=== PATIENT | female | born 1955 | race Caucasian/White ===

== ENCOUNTER 2024-02-09 16:16 | Outpatient (AMB) | payer OTHER, SELFPAY ==
--- NOTE | 2024-02-09 12:42 | A.OFFVIS_ITS ---
Vital Signs 02/09/24 16:18 Height 5 ft 2 in Weight 220 lb 7.396 oz BMI 40.3 BP 118/66 Blood Pressure Location Rt brachial Position Sitting Pulse 70 Pulse Source Pulse Oximeter Intake Visit Reasons: T2DM/hyperlipidemia/CONF Intake Note: Patient presents today to re-establish treatment for Type 2 Diabetes Mellitus & Hyperlipidimia: Last Diabetic eye exam was on: OVER DUE Last Podiatry exam was on: Does not see a Program Developer Most recent HbA1c: 8.4%, 02/09/2024 Random Glucose- 57 mg/dL, Today, 16:29 PM, 87 mg/dL, 16:52 PM Financial Planning Adviser Required: No Accompanied by: Self / Same As Patient Allergies doxycycline Allergy (Mild, Uncoded 02/09/24 16:39) Unknown HPI Comments Details: 68 YO female who is seen in consultation for T2DM at the request of PCP. Initially diagnosed with T2DM in []. Was initially started on treatment with []. Current regimen []. Checks sugars [] times per day. Average sugar: [] Range: [] Per the CGM Helio / Dexcom CGMS is active % of time . data the patient's predicted A1C is []% which is compared to the patients previous A1C [] dated []. Avg glucose is . Variability of The patient's blood sugars were in target []% of the time, above target []% of the time, and below target []% of th e time Reports low sugars []. Treats lows with []. [Checks] sugar after to ensure it is rising. [Treats] according to rule of 15's. Most recent A1C [], [down] from prior [] on []. Family history of T2DM in []. Has eyes checked yearly, last eye exam [], [denies] retinopathy. [Denies ] neuropathy, last foot exam [], sees podiatry. [Denies] nephropathy, on [DILIA/ARB]. UAC [] as measured on []. [Has] HLD, on [statin]. Last LDL [] as measured on []. [Denies] CAD. Diet: [] Weight: [] [Had] diabetes education. [facility] Medical History (Updated 02/09/24 @ 16:43 by Soha Godinez NP) Type 2 diabetes mellitus Physical Exam Vital Signs: Last Vital Signs Pulse 70 02/09/24 16:18 BP 118/66 02/09/24 16:18 BMI result Body Mass Index 40.3 Absence of Cushingoid features. Absence of acromegalic features. Neck exam reveals nl size thyroid about 15 gms. No thyroid nodules palpable. No carotid bruits present. Lungs CTA. Heart S1 S2, Reg R/R. No M/R/ G. Skin exam reveals absence of vitiligo or acanthosis nigricans. Abdominal exam reveals Soft NT/ND with NA BS. No organomegaly present. Neck Other: . Extrem Other: Visual exam of foot performed. No ulcerations or open lesions. No onchomycosis, no callouses.Pulses 2 + distally Sensation intact to monofilament exam. Vibratory sensation sensed is intact with 128 Hz tuning fork Results AMB Hemoglobin A1c AMB Hemoglobin A1c 8.4 % Last Edit by FARHAD Spain on 02/09/24 16:54 Results Reviewed Results Reviewed: Laboratory Last Values Glucose (Clinic) 87 mg/dL (60-115) 02/09/24 16:52 Hgb A1c (Clinic) 8.4 % (4.0-6.0) H 02/09/24 16:54 Assessment & Plan Assessment & Plan Orders: Orders Microalbumin, Random (w Creat) 02/09/24 E11.9 - Type 2 diabetes mellitus without complications Creatinine Urine 02/09/24 E11.9 - Type 2 diabetes mellitus without complications AMB Hemoglobin A1c 02/09/24 E11.9 - Type 2 diabetes mellitus without complications Coding
[2024-02-09 16:18] VITALS: BP 118/66; PULSE 70; BMI 40.3
--- NOTE | 2024-02-09 16:21 | A.OFFVIS_ITS ---
Vital Signs 02/09/24 16:18 Height 5 ft 2 in Weight 220 lb 7.396 oz BMI 40.3 BP 118/66 Blood Pressure Location Rt brachial Position Sitting Pulse 70 Pulse Source Pulse Oximeter Intake Visit Reasons: T2DM/hyperlipidemia/CONF Intake Note: Patient presents today to re-establish treatment for Type 2 Diabetes Mellitus & Hyperlipidimia: Last Diabetic eye exam was on: OVER DUE Last Podiatry exam was on: Does not see a Keyseater Operator Most recent HbA1c: DUE Random Glucose- 57 mg/dL, Today Furniture Decals Inspector Required: No Accompanied by: Self / Same As Patient Allergies doxycycline Allergy (Mild, Uncoded 02/09/24 16:24) Unknown HPI Comments Details: 68 YO female who is seen in consultation for T2DM at the request of PCP. Initially diagnosed with T2DM in 2008, pre diabetes ten years prior to that time. Was initially started on treatment with metformin 500mg titrated 1000mg twice daily stopped due to a recall, was put back on the regular and couldn't tolerate regular strength. She is on a Purkinje helio 2. She ran out of sensors due to falling out early. She has a reader. Readings fastings have been 140-165, recently Lantus was increased to 40 units now am readings are 115-130 Current regimen Lantus 40 units Humalog sliding scale 12-16 am, 16-22 units glipizide: was advised to take 1/2 to 1 tablet in the evening with a snack, hasn't needed . Checks sugars [] times per day. Average sugar: [] Range: [] Per the CGM Helio / Dexcom CGMS is active % of time . data the patient's predicted A1C is []% which is compared to the patients previous A1C [] dated []. Avg glucose is . Variability of The patient's blood sugars were in target []% of the time, above target []% of the time, and below target []% of the time Reports low sugars []. Treats lows with []. [Checks] sugar after to ensure it is rising. [Treats] according to rule of 15's. Most recent A1C [], [down] from prior [] on []. Family history of T2DM in []. Has eyes checked yearly, last eye exam [], [denies] retinopathy. [Denies ] neuropathy, last foot exam [], sees podiatry. [Denies] nephropathy, on [DILIA/ARB]. UAC [] as measured on []. [Has] HLD, on [statin]. Last LDL [] as measured on []. [Denies] CAD. Diet: [] Weight: [] [Had] diabetes education. Physical Exam Vital Signs: Last Vital Signs Pulse 70 02/09/24 16:18 BP 118/66 02/09/24 16:18 BMI result Body Mass Index 40.3 Absence of Cushingoid features. Absence of acromegalic features. Neck exam reveals nl size thyroid about 15 gms. No thyroid nodules palpable. No carotid bruits present. Lungs CTA. Heart S1 S2, Reg R/R. No M/R/ G. Skin exam reveals absence of vitiligo or acanthosis nigricans. Abdominal exam reveals Soft NT/ND with NA BS. No organomegaly present. Neck Other: . Extrem Other: Visual exam of foot performed. No ulcerations or open lesions. No onchomycosis, no callouses.Pulses 2 + distally Sensation intact to monofilament exam. Vibrat ory sensation sensed is intact with 128 Hz tuning fork Results Reviewed Results Reviewed: Laboratory Last Values Glucose (Clinic) 57 mg/dL (60-115) L* 02/09/24 16:29 Coding
[2024-02-09 16:36] LABS: Glucose, Whole Blood 57 mg/dL (60-115)
[2024-02-09 16:56] LABS: Glucose, Whole Blood 87 mg/dL (60-115)
== END 2024-02-09 17:02 | disposition home or self-care (01) ==
PROVIDERS: PCP Family Medicine; Visit Provider Nurse Practitioner Adult Health
DX: E11.9 Type 2 diabetes mellitus without complications (principal)

== ENCOUNTER → 2024-02-09 16:16 | Outpatient (BNVA) | payer OTHER, SELFPAY | PROVIDERS: PCP Family Medicine; Visit Provider Nurse Practitioner Adult Health | DX: E11.9 Type 2 diabetes mellitus without complications (principal); Z79.4 Long term (current) use of insulin | CPT/HCPCS: 82947; 83036 ==

== ENCOUNTER 2024-05-31 15:26 | Outpatient (AMB) | payer OTHER, SELFPAY ==
--- NOTE | 2024-05-31 13:34 | A.OFFVIS_ITS ---
Vital Signs 05/31/24 15:35 Height 5 ft 2 in BMI Reason not done Patient refused/unable BP 118/76 Blood Pressure Location Rt brachial Position Sitting Pulse 74 Pulse Source Pulse Oximeter Pulse Oximetry (%) 96 Oxygen Delivery Method Room Air Intake Visit Reasons: T2DM/hyperlipidemia Intake Note: Patient presents today for a follow-up on Type 2 Diabetes Mellitus & Hyperlipidemia: Last Diabetic eye exam was on: OVER DUE Last Podiatry exam was on: Does not see a Wire Weaver Helper Most recent HbA1c: 7.6%, 05/31/2024 Random Glucose- 92 mg/dL, Today Allergies doxycycline Allergy (Mild, Uncoded 02/09/24 16:39) Unknown HPI Comments Details: 68 YO female who is seen in f/u for T2DM. She was seen for initial consultation 02/09/24 at which time a glucose sensor was recommended in no changes to medications were made due to improving glucose numbers. Hemoglobin A1c 05/31/2024 7.6 %, 02/10/2024 8.4 % down from 10.8% Was initially started on treatment with metformin diarrhea, stomach ache, nausea rebelysus same: GI issues Current regimen: Lantus 36 units at hs Humalog 10-14 units with breakfast 12-16 units with supper gLipizide 10mg daily 1to 1 1/2 am pm 1- 2 with supper takes this 3 times per week when she takes it, it does bring her sugars down. Causes occasional lows She has not been following a balanced diet and has had quite a few readings high 200's/ She is motivated Treats lows with juice or jelly beans. 15 carb g and repeat in 15 minutes follows up with protein. Doesn't seem to correlate with when she has taken glipzide. Most recent A1C 8.4%02/09/24 next down from prior 10.8 on 10/13/2023. Denies retinopathyHas eyes checked yearly. Last eye exam over a year Has neuropathy: on gabapentin takes for restless legs some numbness improved by gabapentin takes at hs and takes only in the am if symptomatic [Denies] nephropathy, on [DILIA/ARB]. labs not available [Has] HLD, on statin Last LDL not available [facility] Medical History (Updated 03/31/24 @ 16:46 by Soha Godinez NP) Neuropathy Hypothyroidism Hyperlipidemia Type 2 diabetes mellitus Physical Exam Vital Signs: Last Vital Signs Pulse 74 05/31/24 15:35 BP 118/76 05/31/24 15:35 Pulse Ox 96 05/31/24 15:35 Oxygen Delivery Method Room Air 05/31/24 15:35 Const Other: Absence of Cushingoid features. Absence of acromegalic features. Neck exam reveals nl size thyroid about 15 gms. No thyroid nodules palpable. No carotid bruits present. Lungs CTA. Heart S1 S2, Reg R/R. No M/R G. Skin exam reveals absence of vitiligo or acanthosis nigricans. No edema . No ulcerations or open lesions. No inter digit maceration or fissuring. No onychomycosis, no callouses. Sensation diminished to monofilament exam. Vibratory sensation is normal with 128 Hz tuning fork. Results AMB Hemoglobin A1c AMB Hemoglobin A1c 7.6 % Last Edit by FARHAD Spain on 05/31/24 15:51 Results Reviewed Results Reviewed: Laboratory Last Values Glucose (Clinic) 92 mg/dL (60-115) 05/31/24 15:40 Hgb A1c (Clinic) 7.6 % (4.0-6.0) H 05/31/24 15:50 Assessment & Plan Assessment & Plan (1) Type 2 diabetes mellitus: Code(s): E11.9 - Type 2 diabetes mellitus without complications Category: Medical Plan: 69-year-old type 2 diabetic with neuropathy on gabapentin with an A1c of 7.6%. Patient believes her A1c would be 7 but she has had a short run of noncompliance with diet which she will attempt to improve. I reviewed that are typically do not give glipizide when a patient is on insulin and that we could do a sliding scale. Because she only periodically has elevated readings, she preferred to stick with the glipizide and we will observe for any side effects. The patient was counseled that adding 2-10 minutes of exercise in the evening we will lower her sugars overnight. She is somewhat limited secondary to back pain. She declined Hawa aLra RD referral but is willing to see Mishel Garcia CDE. I will see her back in 3 months' time The patient had an opportunity to ask questions regarding treatment plan. The pa lyle expressed understanding and agreement with the above treatment plan. The patient is aware they should contact our office by phone for worsening glucose readings or for any low blood sugars which may warrant a change in diabetes medication. Compliance is encouraged with medications and any followup testing/consults which may have been ordered. Orders: Orders AMB Hemoglobin A1c Today E11.9 - Type 2 diabetes mellitus without complications Referrals Diabetes Education Referral E11.9 - Type 2 diabetes mellitus without complications Patient Instructions: Take 15 carb carbohydrate grams to treat a low sugar (3-4 glucose tablets, half a glass of juice or 15 carbohydrate grams of soft candy such as gummie snacks). Recheck your sugar in 15 minutes and re-treat again with 15 carbohydrate grams if low or still with symptoms. Do not drive a car or operate machinery if you do not know what your blood sugar is, if it is low or in excess of 300. Check your feet daily looking for any signs of infection, drainage, redness, ulceration and seek medical attention if this occurs. Break in shoes gradually and do not wear open-toed shoes or walk stocking footed or barefooted. The patient was counseled to achieve a target A1C of 7% (154 avg). Fasting blood sugars should be 90-130 in the morning and less than 180 two hours after meals. Reviewed the relationship between poor diabetic control and the development of complications. Coding Level of Care Code Est Pt Level 4 (96255) Complex EM visit Add On G2211 Diagnoses Type 2 diabetes mellitus E11.9 Time Spent (min) 30 Comment Time spent reviewing labs/provider notes, face to face, chart doc
[2024-05-31 15:35] VITALS: BP 118/76; PULSE 74; O2SAT 96
[2024-05-31 16:26] LABS: Glucose, Whole Blood 92 mg/dL (60-115)
--- OUTSIDE RECORDS SUMMARY | 2024-05-31 19:16 | XMS_ITS | Encounter Summary ---
Author Organization [employer] Address [address] [place] [address] [address] [place] [address] Care Team Providers Care Highway Maintenance Technician Name Role Phone Ilana Smith Primary Care Provider [phone] Reason for Visit * Reason Comments Med Refill Encounter Details Date Type Department Care Team ([facility] st Contact Info) Description 03/05/2023 Refill [facility] [address] [place], [place] [phone] Ilana Smith ANP [address] [place] [address] Social History Tobacco Use Types Packs/Day Years Used Date Smoking Tobacco: Never Smokeless Tobacco: Never Alcohol Use Standard Drinks/Week Comments Not Currently 0 (1 standard drink = 0.6 oz pur e alcohol) Depression Answer Date Recorded Patient Health Questionnaire-9 Score 5 01/06/2023 Patient Health Questionnaire-9 Score 5 01/06/2023 Last PHQ-9: Questionnaire Data Not on file 1 Housing Stability Answer Date Recorded What is your housing situation today? I do not have housing (Staying with others, in a hotel, in a alf, living outside on the street, on a beach, in a car, or in a park 01/06/[address] you li ve. Do you have problems with any of the following? None of the above 01/06/2023 Food Insecurity Answer Date Recorded Within the past 12 months, y ou worried that your food would run out before you got money to buy more: Never True 01/06/2023 Within the past 12 months,th e food you bought just didn't last and you didn't have enough money to get more: Never True Transportation Answer Date Recorded In the past 12 months, has l ack of transportation kept you from medical appts, meetings, work or from getting things needed for daily living? No 01/06/2023 Utilities Answer Date Recorded In the past 12 months, has t he electric, gas, oil or water company threatened to shut off services in your home? No 01/06/2023 Depression Answer Date Recorded Patient Health Questionnaire-2 Score 1 01/06/2023 Comments Unknown Sex and Gender Information Value Date Recorded Sex Assigned at Female 01/06/2022 10:34 AM EDT Legal Sex Female 10:34 AM EDT Gender Identity Female 01/06/2022 10:34 AM EDT Sexual Orientation Straight 01/06/2022 10 :34 AM EDT documented as of this encounter Plan of Treatment Upcoming Encounters Date Type Department Care Team (Late st Contact Info) Description 07/28/2024 2:00 PM EDT Office Visit [facility] [address] [place] [address] Ilana Smith ANP [address] [place] [address] documented as of this encounter Visit Diagnoses Not on filedocumented in this encounter Additional Health Concerns Assessment Noted Time PHQ-9 Depression Total Score: 5 01/07/20 23 3:08 PM EDT documented as of this encounter Care Teams Highway Maintenance Technician Relationship Specialty Start Date End Date Ilana Smith ANP [address] [place] [id number] PCP - General Family Medicine 10/24/21 documented as of this encounter
--- OUTSIDE RECORDS SUMMARY | 2024-05-31 19:16 | XMS_ITS | Encounter Summary ---
Author Organization [employer] Address [address] [facility] [address] [place] [address] Care Team Providers Care Day Trader Name Role Phone Ilana Smith SANTOS Primary Care Provider [phone] Encounter Details Date Type Department Care Team (Latest Contact Info) Description 05/26/2024 Travel Social History Tobacco Use Types Packs/Day Years Used Date Smoking Tobacco: Never Smokeless Tobacco: Never Alcohol Use Standard Drinks/Week Comments Not Currently 0 (1 standard drink = 0.6 oz pur e alcohol) Depression Answer Date Recorded Patient Health Questionnaire-9 Score 3 05/26/2024 Patient Health Questionnaire-9 Score 3 05/26/2024 Last PHQ-9: Questionnaire Data Not on file 0 05/26/2024 Housing Stability Answer Date Recorded What is your housing situation today? I have gallo youssef 05/18/[address] you li ve. Do you have problems with any of the following? None of the above 05/18/2024 Food Insecurity Answer Date Recorded Within the past 12 months, y ou worried that your food would run out before you got money to buy more: Never True 05/18/2024 Within the past 12 months,th e food you bought just didn't last and you didn't have enough money to get more: Never True 02/2025 Transportation Answer Date Recorded In the past 12 months, has l ack of transportation kept you from medical appts, meetings, work or from getting things needed for daily living? No 05/18/2024 Utilities Answer Date Recorded In the past 12 months, has t he electric, gas, oil or water company threatened to shut off services in your home? No 05/18/2024 Depression Answer Date Recorded Patient Health Questionnaire-2 Score 2 05/26/2024 Internet Access Answer Date Recorded Internet Access Q1 Yes 05/18/2024 Internet Access Q2 Not on file 05/18/2024 Comments Unknown Sex and Gender Information Value [...] Description 07/28/2024 2:00 PM EDT Office Visit [facility] MEDICINE [address] [place] [phone] Ilana Smith ANP [address] [place] [address] documented as of this encounter Visit Diagnoses Not on filedocumented in this encounter Additional Health Concerns Assessment Noted Time PHQ-9 Depression Total Score: 3 05/27/19 25 1:41 PM EDT documented as of this encounter Care Teams Day Trader Relationship Specialty Start Date End Date Ilana Smith ANP [address] [place] [id number] PCP - General Family Medicine 10/24/21 documented as of this encounter
--- OUTSIDE RECORDS SUMMARY | 2024-05-31 19:16 | XMS_ITS | Encounter Summary ---
Author Organization [employer] Address [address] [facility] 7t [place] [address] Care Team Providers Care Treating Plant Operator Name Role Phone Ilana Smith Primary Care Provider [phone] Encounter Details Date Type Department Care Team (Latest Contact Info) Description 05/26/2024 2:00 PM EDT Telemedicine [facility] MEDICINE [address] [place], [place] [phone] Ilana Smith ANP [address] [place], [place] [phone] Depression, unspecified depression type (Primary Dx); Morbid obesity (CMS/HCC); Type 2 diabetes mellitus with hyperlipidemia (CMS/HCC) ([facility]/HCC); Acquired hypothyroidism; Restless legs Social History Tobacco Use Types Packs/Day Years [...] your housing situation today? I have gallo mikael 05/18/[address] you li [...] AM EDT documented as of this encounter Progress Notes * SANTOS Alvarez - 05/26/2024 2:00 PM EDT Subjective Patient ID: Lisa Sanchez is a 69 y.o. female who presents for No chief complaint on file.. HPI PMH T2DM w/ HLD, chronic low back pain w/ R sided sciatica Is interested into wellbutrin for wt loss and antidepressant effect. For DM: she could not tolerate any GLP1 or GLP/GIP. Thus far have trialed trulicity, ozempic, rybelsus and tirzepatide. EMMANUELLE incl nausea, vomiting, diarrhea. She is using glipizide, basal and bolus insulin. She will look into RSV vaccine at her pharmacy. Lab Results Component Value Date HGBA1C 8.2 (A) 02/25/2024 Review of Systems Constitutional: Negative for chills and fever. HENT: Negative for sore throat. Respiratory: Negative for cough and shortness of breath. Cardiovascular: Negative for chest pain. Gastrointestinal: Negative for constipation and diarrhea. Endocrine: Negative for polydipsia, polyphagia and polyuria. Genitourinary: Negative for dysuria. Psychiatric/Behavioral: Negative for sleep disturbance. Objective Physical Exam Exam limited by telehealth format. Pt speaking clearly in complete sentences. Assessment/Plan Diagnoses and all orders for this visit: Depression, unspecified depression type Reviewed side effects of new medication, when to call clinic, when to stop med (such as w/ worsening of depression with mental health meds or occurrence of rash, allergic reaction). Having difficulty getting out of the house. - buPROPion XL (Wellbutrin XL) 150 MG 24 hr tablet; Take 1 tablet (150 mg) by mouth Once per day. Do not crush, chew, or split. Morbid obesity (CMS/HCC) Lifestyle recommendations: be as active as able, ideally exercise 150min moderate intensity or 75min vigorous intensity weekly; increase intake of vegetables, fruits, whole grains, fish. Try to minimize intake of sugary or greasy food and drink. Use olive oil or vegetable, peanut, canola, or similar oil for cooking. Type 2 diabetes mellitus with hyperlipidemia (CMS/HCC) (CMS/[facility]) A1c goal < 7.0 Thus far cannot tolerate any GLP1 Cont lantus and lispro (PRN) Using glipizide PRN elevated BG or based on meals planned Will get labs as ordered Planning to follow-up w/ endo for ongoing consideration for insulin pump Recommend she look at [email or web address] for support and info. On statin, no DILIA/ARB or ASA Eye exam she will call for visit - Comprehensive Metabolic Panel; Future - Lipid Panel, Standard; Future - atorvastatin (Lipitor) 80 MG tablet; Take 1 tablet (80 mg) by mouth at bedtime. - gabapentin (Neurontin) 400 MG capsule; TAKE 2 CAPSULES BY MOUTH AT BEDTIME NEEDED FOR RESTLESSLEGS AND 1 CAPSULE ONCE DAILY IN THE MORNING - glipiZIDE (Glucotrol) 10 MG tablet; TAKE 1 /2 - 2 TABLET BY MOUTH BEFORE BREAKFAST AND 1/2 -2 TABLETS BEFORE DINNER - Hemoglobin A1c; Future - Albumin, Random Urine W/Creatinine; Future Acquired hypothyroidism Cont levothyroxine 200mcg, check: - TSH W/Reflex to FT4; Future Restless legs - gabapentin (Neurontin) 400 MG capsule; TAKE 2 CAPSULES BY MOUTH AT BEDTIME NEEDED FOR RESTLESSLEGS AND 1 CAPSULE ONCE DAILY IN THE MORNING documented in this encounter Plan of Treatment Upcoming Encounters Date Type Department Care Team (Late st Contact Info) Description 07/28/2024 2:00 PM EDT Office Visit [facility] MEDICINE [address] [place] [address] Ilana Smith ANP [address] [place] [address] Scheduled Orders Name Type Priority Associated Diagnoses Orde r Schedule TSH W/Reflex to FT4 Lab Routine Acquired hypothyroidism Expected: 05/26/2024 (Approximate), Expires: 05/26/2025 Comprehensive Metabolic Panel Lab Routine Type 2 diabetes mellitus with hyperlipidemia (CMS/HCC) ([facility]/HCC) Expected: 05/26/2024 (Approximate), Expires: 05/26/2025 Lipid Panel, Standard Lab Routine Type 2 diabetes mellitus with hyperlipidemia (CMS/HCC) (CMS/HCC) Expected: 05/26/2024 (Approximate), Expires: 05/26/2025 Hemoglobin A1c Lab Routine Type 2 diabetes mellitus with hyperlipidemia (CMS/HCC) (CMS/HCC) Expected: 05/26/2024 (Approximate), Expires: 05/26/2025 Albumin, Random Urine W/Creatinine Lab Routine Type 2 diabetes mellitus with hyperlipidemia (CMS/HCC) (CMS/HCC) Expected: 05/26/2024 (Approximate), Expires: 05/26/2025 documented as of this encounter Visit Diagnoses Diagnosis Depression, unspecified depression type- Primary Morbid obesity (CMS/HCC) Morbid obesity Type 2 diabetes mellitus with hyperlipidemia (CMS/HCC) (CMS/HCC) Acquired hypothyroidism Unspecified hypothyroidism Restless legs Restless legs syndrome (RLS) documented in this encounter Additional Health Concerns Assessment Noted Time PHQ-9 Depression Total Score: 3 05/27/19 25 1:41 PM EDT documented as of this encounter Care Teams Treating Plant Operator Relationship Specialty Start Date End Date Ilana Smith ANP [address] [place] [address] PCP - General Family Medicine 10/24/21 documented as of this encounter
--- OUTSIDE RECORDS SUMMARY | 2024-05-31 19:16 | XMS_ITS | Clinical Summary ---
Author Organization [employer] Address [address] [place] [address] 7 [place] [address] Care Team Providers Care Lyft Driver Name Role Phone Ilana Smith SANTOS Primary Care Provider [phone] Allergies Active Allergy Reactions Criticality Noted Date Comments Doxycycline Other 02/25/2022 vomiting Semaglutide Nausea Medium 05/26/2024 Tirzepatide Nausea Medium 05/26/2024 Medications tiotropium (Spiriva Respimat) 2.5 MCG/ACT inhalerIndication s:Moderate persistent asthma without complication 2 puffs daily 1 each 11 023 Active Deep Sea Nasal [place] 0.65 % nasal sprayIndications: Acute bacterial rhinosinusitis USE 2 SPRAYS IN EACH NOSTRIL EVERY 2 TO 3 HOURS NEEDED FOR NASAL CONGESTION 44 mL 1 023 Active clobetasol (Temovate) 0.05 % ointment Apply daily x 7 days to affected area, then twice a week as needed after that 45 g 023 Active miconazole (Micotin) 2 % creamIndications: Rash Apply twice daily as needed 118 mL 2 023 Active Continuous Blood Gluc Junior [employer] Dba (FreeStyle Helio 2 [place]) deviceIndications :Type 2 diabetes mellitus with hyperlipidemia (CMS/HCC) (CMS/HCC) 1 each 5 (five) times a day. 1 each 023 Active FreeStyle lancetsIndication s:Type 2 diabetes mellitus with hyperlipidemia (CMS/HCC) (CMS/HCC) 1 each by Other route 3 times daily. Use bid, dx type 2 diabetes 100 each 11 024 Active insulin lispro (HumaLOG KWIKPEN) 100 UNIT/ML injectionIndicati ons:Type 2 diabetes mellitus with hyperlipidemia (CMS/HCC) ([facility]) 6 units with dinner daily 15 mL 1 024 Active insulin glargine (Lantus SoloStar) 100 UNIT/ML penIndications:Ty pe 2 diabetes mellitus with hyperlipidemia (CMS/HCC) ([facility]) Inject 8 Units under the skin Once daily. 3 mL 5 024 2024 Active pen needle 32G x 4 mm miscIndications:T ype 2 diabetes mellitus with hyperlipidemia (CMS/HCC) ([facility]) Use as instructed, use 3 - 4 x day with insulin pen 100 each 12 024 2024 Active levothyroxine (Synthroid, Levoxyl) 200 MCG tabletIndications :Acquired hypothyroidism TAKE 1 TABLET BY MOUTH DAILY 90 tablet 3 Active Continuous Glucose Sensor (FreeStyle Helio 2 Sensor) miscIndications:T ype 2 diabetes mellitus with hyperlipidemia ([facility]/HCC) ([facility]) USE DIRECTED & CHANGE EVERY 14 DAYS 2 each 11 024 Active Advair HFA 230-21 MCG/ACT inhalerIndication s:Moderate persistent asthma without complication INHALE 2 PUFFS BY MOUTH EVERY TWELVE HOURS 12 g 11 024 Active albuterol 108 (90 Base) MCG/ACT inhaler INHALE 2 PUFFS BY MOUTH EVERY 4 TO 6 HOURS NEEDED FOR WHEEZING OR SHORTNESS OF BREATH 8.5 g 3 025 Active buPROPion XL (Wellbutrin XL) 150 MG 24 hr tabletIndications :Depression, unspecified depression type Take 1 tablet (150 mg) by mouth Once per day. Do not crush, chew, or split. 90 tablet 1 025 2025 Active atorvastatin (Lipitor) 80 MG tabletIndications :Type 2 diabetes mellitus with hyperlipidemia (CMS/HCC) ([facility]) Take 1 tablet (80 mg) by mouth at bedtime. 90 tablet 1 025 Active gabapentin (Neurontin) 400 MG capsuleIndication s:Type 2 diabetes mellitus with hyperlipidemia (CMS/HCC) ([facility]),Restles s legs TAKE 2 CAPSULES BY MOUTH AT BEDTIME NEEDED FOR RESTLESS LEGS AND 1 CAPSULE ONCE DAILY IN THE MORNING 90 capsule 1 025 Active glipiZIDE (Glucotrol) 10 MG tabletIndications :Type 2 diabetes mellitus with hyperlipidemia (CMS/HCC) (CMS/HCC) TAKE 1 /2 - 2 TABLET BY MOUTH BEFORE BREAKFAST AND 1/2 -2 TABLETS BEFORE DINNER 360 tablet 2 025 Active glipiZIDE (Glucotrol) 10 MG tablet TAKE 1 /2 - 2 TABLET BY MOUTH BEFORE BREAKFAST AND 1/2 -2 TABLETS BEFORE DINNER 360 tablet 2 024 2024 Discontinued(R eorder (will not trigger notification to Pharmacy)) glucose blood (FreeStyle Precision Feng Test) test stripIndications: Type 2 diabetes mellitus with hyperlipidemia (CMS/HCC) ([facility]) Use to test blood sugar 3 times daily 100 each 12 024 2024 atorvastatin (Lipitor) 80 MG tablet TAKE 1 TABLET BY MOUTH ONCE DAILY AT BEDTIME 90 tablet 1 024 2024 Discontinued(R eorder (will not trigger notification to Pharmacy)) semaglutide (Rybelsus) 3 MG tabletIndications :Type 2 diabetes mellitus with hyperlipidemia (CMS/HCC) ([facility]) Take 1 tablet (3 mg) by mouth before breakfast. 30 tablet 024 2024 Discontinued(S sowmya effects) gabapentin (Neurontin) 400 MG capsuleIndication s:Restless legs TAKE 2 CAPSULES BY MOUTH AT BEDTIME NEEDED FOR RESTLESS LEGS AND 1 CAPSULE ONCE DAILY IN THE MORNING 90 capsule 025 2024 Discontinued(R eorder (will not trigger notification to Pharmacy)) Active Problems Problem Noted Date Diagnosed Date Acquired hypothyroidism 04/07/2018 Hyperlipidemia 04/07/2018 Mild intermittent asthma 04/07/2018 Obstructive sleep apnea syndrome 04/07/2018 Type 2 diabetes mellitus with hyperlipidemia (CM S/HCC) 04/07/2018 Overview (01/18/2024): her A1c has remained above goal despite insulin therapy and glipizide. She has not been able to tolerate other medications including metformin and GLP1 due to GI side effects. Unable to tolerate SGLT2i d/t recurrent yeast infection. Restless legs 04/07/2018 Wears partial dentures 04/07/2018 Morbid obesity 04/07/2018 H/O: hysterectomy 04/07/2018 Encounters Date Type Department Care Team Description 05/26/2024 2:00 PM EDT Telemedicine [facility] MEDICINE [address] [place] [phone] Ilana Smith ANP Depression, unspecified depression type (Primary Dx); Morbid obesity ([facility]); Type 2 diabetes mellitus with hyperlipidemia ([facility]) ([facility]); Acquired hypothyroidism; Restless legs 05/26/2024 Travel 05/18/2024 Patient Outreach [facility] MEDICINE [address] [place] [phone] Ilana Smith ANP Pre-visit Planning (SDOH Screening negative and Tobacco screening negative) 04/19/2024 Refill [facility] MEDICINE [address] [place] [phone] Ilana Smith ANP Restless legs 04/10/2024 Refill [facility] MEDICINE [address] [place] [phone] Ilana Smith ANP 2024 Telephone [facility] MEDICINE [address] [place] [address] Ilana Smith ANP 03/22/2024 Telephone [facility] MEDICINE [address] [place] [phone] Tyra Roldan, [place] May recall 03/16/[address] [address] Karen 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 worker from Last 3 Months Immunizations Name Administration Dates Next Due Influenza High-dose Quadriva lent Preservative Free 12/04/2022,11/21/2021,11/22/2020 Influenza Injectable Quadriv alant Preservative Free IIV4 MDCK 11/23/2019 Influenza injectable quadriv alent IIV4 with preservative 11/17/2018,11/18/2017 Influenza injectable quadriv alent preservative free 01/23/2017 Influenza, High Dose Seasona l, Preservative Free 02/25/2024 Moderna Covid-19 Vaccine 12+ 01/25/2021,04/06/19 21,03/07/2020 Pfizer Covid-19 Vaccine 12+ 02/25/2024 Pneumococcal Conjugate PCV 20 01/06/2023 Pneumococcal Polysaccharide PPSV23 11/09/2018 Tdap 03/09/2016 Zoster, Recombinant 02/02/2019,12/03/2018 Social History Tobacco Use Types Packs/Day Years Used Date Smoking Tobacco: Never Smokeless Tobacco: Never Tobacco Cessation:Counseling Given: Not Answered Alcohol Use Standard Drinks/Week Comments Not Currently [...] Orientation Straight 01/06/2022 10 :34 AM EDT Last Filed Vital Signs Vital Sign Reading Time Taken Comments Blood Pressure 162/71 02/25/2024 2:20 PM EST Pulse 78 02/25/2024 2:20 PM EST Temperature 36.5 ??C (97.7 ??F) 02/25/2024 2:20 PM ES T Respiratory Rate 14 02/25/2024 2:20 PM EST Oxygen Saturation 94% 02/25/2024 2:20 PM EST Inhaled Oxygen Concentration - - Weight 104 kg (228 lb 3.2 oz) 11/28/2021 12:09 A M EDT Height 154.9 cm (5' 1 ) 04/14/2023 2:39 PM EST Body Mass Index 41.74 11/28/2021 12:09 AM EDT Plan of Treatment Upcoming Encounters Date Type Department Care Team (Late st Contact Info) Description 07/28/2024 2:00 PM EDT Office Visit [facility] MEDICINE [address] [place], [place] [phone] Ilana Smith ANP [address] [place], [place] [phone] Health Maintenance Due Date Last Done Comments CT Colonography 1954 FIT DNA/Cologuard 1954 FIT 1954 FOBT 1954 Lipid Panel 1954 Sigmoidoscopy 1954 Diabetes: Foot Exam 1964 Eye Exam 1964 Hepatitis C Screening 1972 Diabetes: Urine Protein Screening 1973 RSV Patients and Patients Aged 60 years or older (1 - Risk 60-74 years 1-dose series) 2014 Diabetes: Hemoglobin A1C 05/25/2024 024, 10/13/2023, 04/14/2023, Additional history exists Colonoscopy 08/17/2024 08/18/2019 Colorectal Cancer Screening 08/17/2024 Alcohol/Substance Use Screening 02/24/2025 02/25/2024 Mammogram 02/24/2025 Postponed from 1994 (Patient Refused) SDOH Screening 05/18/2025 05/18/2024 Depression Screening 05/26/2025 05/26/2024, 05/27/19 25 Tobacco Screening 05/26/2025 05/26/2024 DTaP/Tdap/Td Vaccines (2 - Td or Tdap) 03/09/2026 03/09/2016 Zoster Vaccines Completed 02/02/2019, 12/03/2018 Pneumococcal Vaccine: 50+ Years Completed 01/06/2023, 11/09/2018 COVID-19 Vaccine Completed 02/25/2024, , 04/06/2020, Additional history exists Influenza Vaccine Completed 02/25/2024, , 11/21/2021, Additional history exists HIB Vaccines Aged Out No longer eligi ble based on patient's age to complete this topic HPV Vaccines Aged Out No longer eligi ble based on patient's age to complete this topic Hepatitis A Vaccines Aged Out No long er eligible based on patient's age to complete this topic Hepatitis B Vaccines Aged Out No long er eligible based on patient's age to complete this topic IPV Vaccines Aged Out No longer eligi ble based on patient's age to complete this topic Meningococcal Vaccine Aged Out No nick irma eligible based on patient's age to complete this topic RSV under 20 months Aged Out No longe r eligible based on patient's age to complete this topic Rotavirus Vaccines Aged Out No longer eligible based on patient's age to complete this topic Procedures Procedure Name Priority Date/Time Associated Diagnosis Comments POCT GLYCATED HEMOGLOBIN, TOTAL Routine 02/25/2024 2:33 PM EST Type 2 diabetes mellitus with hyperlipidemia (CMS/HCC) (CMS/HCC) COLONOSCOPY Routine 08/18/2019 from Last 3 Months or Most Recently Relevant to Health Maintenance Results * (ABNORMAL) POCT HGB A1C (02/25/2024 2:33 PM EST) Hemoglobin A1C 8.2(A) 4.0 - 6.0 % QC Media Lot # [id number] Lot# Expiration Date [id number] Blood 02/25/2024 2:33 PM EST us [facility] POINT OF CARE TEST ENTER/EDIT OR DERABLES Final Result * (ABNORMAL) Colonoscopy (08/18/2019) Colonoscopy Abnormal(A ) Normal us Historical Provider HEALTH MAINTENANCE Final Result from Last 3 Months or Most Recently Relevant to Health Maintenance Insurance [facility] , [address] [place] [address] Care Teams Lyft Driver Relationship Specialty Start Date End Date Ilana Smith ANP [address] [place] [phone] PCP - General Family Medicine 10/24/21
--- OUTSIDE RECORDS SUMMARY | 2024-05-31 19:16 | XMS_ITS | Encounter Summary ---
Author Organization [employer] Address [address] [place] [address] 7 [place] [address] Care Team Providers Care Floriculturist Name Role Phone Ilana Smith Primary Care Provider [phone] Reason for Visit * Reason Comments Pre-visit Planning SDOH Screening negat pradeep and Tobacco screening negative Encounter Details Date Type Department Care Team ([facility] st Contact Info) Description 05/18/2024 Patient Outreach [facility] MEDICINE [address] [place], [place] [phone] Ilana Smith ANP [address] [place] [address] Pre-visit Planning (SDOH Screening negative and Tobacco screening negative) Social History Tobacco Use Types Packs/Day Years Used Date Smoking Tobacco: Never Smokeless Tobacco: Never Alcohol Use Standard Drinks/Week Comments Not Currently 0 (1 standard drink = 0.6 oz pur e alcohol) Depression Answer Date Recorded Patient Health Questionnaire-9 Score 6 02/25/2024 Patient Health Questionnaire-9 Score 6 02/25/2024 Last PHQ-9: Questionnaire Data Not on file 1 04/27/2023 Housing Stability Answer Date Recorded What is [...] Date Recorded Patient Health Questionnaire-2 Score 2 02/25/2024 Internet Access Answer Date Recorded Internet Access Q1 Yes 05/18/2024 Internet Access Q2 Not on file 05/18/2024 Comments Unknown Sex and Gender Information Value Date Recorded Sex Assigned at Female 01/06/2022 10:34 AM EDT Legal Sex Female 10:34 AM EDT Gender Identity Female 01/06/2022 10:34 AM EDT Sexual Orientation Straight 01/06/2022 10 :34 AM EDT documented as of this encounter Progress Notes * Shelbie Null - 05/18/2024 10:55 AM EDT RADHA Hernandez placed successful outbound call to patient for pre-visit planning. Patient name and confirmed. Patient confirms appt date and time, and has transportation arrangements. Biggest concern for appointment at this time is no just the usual stuff. Patient advised to bring to appointment a photo id and insurance card. Appropriate screenings completed in anticipation of appointment. documented in this encounter Plan of Treatment Upcoming Encounters Date Type Department Care Team ([facility] st Contact Info) Description 07/28/2024 2:00 PM EDT Office Visit [facility] MEDICINE [address] [place] [address] Ilana Smith ANP [address] [place] [address] documented as of this encounter Visit Diagnoses Not on filedocumented in this encounter Additional Health Concerns Assessment Noted Time PHQ-9 Depression Total Score: 6 02/25/20 24 3:22 PM EST documented as of this encounter Care Teams Floriculturist Relationship Specialty Start Date End Date Ilana Smith ANP [address] [place] [phone] PCP - General Family Medicine 10/24/21 documented as of this encounter
== END 2024-05-31 16:12 | disposition home or self-care (01) ==
LOC: HO.ENCR 15:27
PROVIDERS: PCP Family Medicine; Visit Provider Nurse Practitioner Adult Health
DX: E11.9 Type 2 diabetes mellitus without complications (principal)
CPT/HCPCS: 99214

== ENCOUNTER → 2024-05-31 15:26 | Outpatient (BNVA) | payer OTHER, SELFPAY | PROVIDERS: PCP Family Medicine; Visit Provider Nurse Practitioner Adult Health | DX: E11.9 Type 2 diabetes mellitus without complications (principal); E78.5 Hyperlipidemia, unspecified; Z79.4 Long term (current) use of insulin | CPT/HCPCS: 82947; 83036 ==

== ENCOUNTER 2024-12-13 08:08 | Outpatient (REF) | payer OTHER, SELFPAY ==
[2024-12-13 12:03] LABS: Alanine Aminotransferase 22 U/L (0-31); Albumin Level 4.2 g/dL (3.5-5.0); Alkaline Phosphatase 71 U/L (39-117); Anion Gap 11 (12-20); Aspartate Amino Transferase 23 U/L (5-31); Blood Urea Nitrogen 17 mg/dL (9-16); Calcium 9.3 mg/dL (8.4-10.2); Carbon Dioxide 28 mmol/L (22-29); Chloride 109 mmol/L (96-108); Cholesterol 206 mg/dL (<200); Estimated Glomerular Filt Rate > 60; HDL Cholesterol 46 mg/dL (>40); Potassium 4.0 mmol/L (3.3-5.1); Sodium 144 mmol/L (135-145); Total Protein 7.5 g/dL (6.5-8.0); Triglycerides 145 mg/dL (<150)
[2024-12-13 12:25] LABS: Microalbum/Creatinine Ratio Ur 18.8 ug/mg cr (<30)
== END 2024-12-13 08:09 | disposition home or self-care (01) ==
LOC: HO.HHCL 08:08
PROVIDERS: PCP Nurse Practitioner Primary Care; Visit Provider Nurse Practitioner Primary Care
DX: E11.69 Type 2 diabetes mellitus with other specified complication (principal); E78.5 Hyperlipidemia, unspecified; E03.9 Hypothyroidism, unspecified
CPT/HCPCS: 36415; 80053; 80061; 82043; 82570; 84443

== ENCOUNTER 2025-03-08 10:21 | Outpatient (REF) | payer OTHER, SELFPAY ==
--- OUTSIDE RECORDS SUMMARY | 2025-03-08 11:28 | XMS_ITS | Encounter Summary ---
Author Organization [employer] Address [address] [facility] 7t [place] [address] Care Team Providers Care Construction Rigger Name Role Phone Ilana Smith Primary Care Provider [phone] Reason for Visit * Reason Comments Med Refill Encounter Details Date Type Department Care Team ([facility] st Contact Info) Description 12/18/2024 Refill [facility] MEDICINE [address] [place], [place] [phone] Ilana Smith ANP [address] [place], [place] [phone] Type 2 diabetes mellitus with hyperlipidemia (HCC); Restless legs Social History Tobacco Use Types [...] Upcoming Encounters Date Type Department Care Team (Latest Contact Info) Description 03/08/2025 2:15 PM EST Clinical Support [facility] MED & PEDS [address] [place] [address] Peyton Bernard, ASHWINI COVID; Encounter for prophylactic immunotherapy for respiratory syncytial virus (RSV); Encounter for screening for COVID-19; Influenza 04/18/2025 2:00 PM EST Office Visit [facility] MEDICINE [address] [place] [address] Ilana Smith ANP [address] [place] [address] documented as of this encounter Visit Diagnoses Diagnosis Type 2 diabetes mellitus with hyperlipidemia (HCC) Restless legs Restless legs syndrome (RLS) COVID Encounter for prophylactic immunotherapy for respiratory syncytial virus (RSV) Encounter for screening for COVID-19 Influenza Influenza with other respiratory manifestations documented in this encounter Additional Health Concerns Assessment Noted Time PHQ-9 Depression Total Score: 3 05/27/19 25 1:41 PM EDT documented as of this encounter Care Teams Construction Rigger Relationship Specialty Start Date End Date Ilana Smith ANP [address] [place] [address] PCP - General Family Medicine 10/24/21 documented as of this encounter
--- OUTSIDE RECORDS SUMMARY | 2025-03-08 11:28 | XMS_ITS | Encounter Summary ---
Author Organization [employer] Address [address] [facility] 7t [place] [address] Care Team Providers Care Home Delivery Driver Name Role Phone Ilana Smith Primary Care Provider [phone] Reason for Visit * Reason Comments Med Refill Encounter Details Date Type Department Care Team ([facility] st Contact Info) Description 03/05/2023 Refill [facility] MEDICINE [address] [place], [place] [phone] Ilana Smith ANP [address] [place] [address] Social History Tobacco Use Types Packs/Day Years [...] with others, in a hotel, in a fpc, living outside on the street, on a [...] Description 03/08/2025 2:15 PM EST Clinical Support [facility] [address] [place] [address] Peyton Bernard, RN COVID; Encounter for prophylactic immunotherapy for respiratory syncytial virus (RSV); Encounter for screening for COVID-19; Influenza 04/18/2025 2:00 PM EST Office Visit [facility] MEDICINE [address] [place] [address] Ilana Smith ANP [address] [place] [address] documented as of this encounter Visit Diagnoses Not on filedocumented in this encounter Additional Health Concerns Assessment Noted Time PHQ-9 Depression Total Score: 5 01/07/20 23 3:08 PM EDT documented as of this encounter Care Teams Home Delivery Driver Relationship Specialty Start Date End Date Ilana Smith ANP [address] [place] [phone] PCP - General Family Medicine 10/24/21 documented as of this encounter
--- OUTSIDE RECORDS SUMMARY | 2025-03-08 11:28 | XMS_ITS | Encounter Summary ---
Author Organization [employer] Address [address] [facility] 7t [place] [address] Care Team Providers Care Secretary Name Role Phone Ilana Smith Primary Care Provider [phone] Reason for Visit * Reason Comments Med Refill Encounter Details Date Type Department Care Team ([facility] st Contact Info) Description 10/22/2024 Refill [facility] MEDICINE [address] [place], [place] [phone] Ilana Smith ANP [address] [place], [place] [phone] Type 2 diabetes mellitus with hyperlipidemia ([facility]/HCC) ([facility]) Social History Tobacco Use Types Packs/Day Years [...] Description 03/08/2025 2:15 PM EST Clinical Support [facility] [address] [place] [address] Peyton Bernard, ASHWINI COVID; Encounter for prophylactic immunotherapy for respiratory syncytial virus (RSV); Encounter for screening for COVID-19; Influenza 04/18/2025 2:00 PM EST Office Visit [facility] MEDICINE [address] [place] [address] Ilana Smith ANP [address] [place] [address] documented as of this encounter Visit Diagnoses Diagnosis Type 2 diabetes mellitus with hyperlipidemia (HCC) COVID Encounter for prophylactic immunotherapy for respiratory syncytial virus (RSV) Encounter for screening for COVID-19 Influenza Influenza with other respiratory manifestations documented in this encounter Additional Health Concerns Assessment Noted Time PHQ-9 Depression Total Score: 3 05/27/19 25 1:41 PM EDT documented as of this encounter Care Teams Secretary Relationship Specialty Start Date End Date Ilana Smith ANP [address] [place] [phone] PCP - General Family Medicine 10/24/21 documented as of this encounter
--- OUTSIDE RECORDS SUMMARY | 2025-03-08 11:28 | XMS_ITS | Encounter Summary ---
Author Organization [employer] Address [address] [facility] [address] 7[address] [place] [address] Care Team Providers Care Broommaking Supervisor Name Role Phone SmithIlana Primary Care Provider [phone] Encounter Details Date Type Department Care Team (Latest Contact Info) Description 03/08/2025 Travel Social History Tobacco Use Types Packs/Day [...] Description 03/08/2025 2:15 PM EST Clinical Support [facility] [address] [place] [address] Peyton Bernard, ASHWINI COVID; Encounter for prophylactic immunotherapy for respiratory syncytial virus (RSV); Encounter for screening for COVID-19; Influenza 04/18/2025 2:00 PM EST Office Visit [facility] MEDICINE [address] [place], [place] [phone] Ilana Smith ANP [address] [place] [address] documented as of this encounter Goals Goal Patient Goal Type Associated Problems Recent Progress Patient-Stated? Author Help patients manage their type 2 diabetes Care Plan Help patients manage their type 2 diabetes No Taylor Roldan, ASHWINI Patient has chronic kidney disease Care Plan Patient has chronic kidney disease No Taylor Roldan RN Patient has chronic kidney disease Care Plan Patient has chronic kidney disease No Mirna Maya [place] Patient has chronic kidney disease Care Plan Patient has chronic kidney disease No Enrrique Fischer Patient has chronic kidney disease Care Plan Patient has chronic kidney disease No Ramez Andrews Patient has chronic kidney disease Care Plan Patient has chronic kidney disease No Jazmin Garcia Patient has chronic kidney disease Care Plan Patient has chronic kidney disease No Peyton Bernard, ASHWINI documented as of this encounter Visit Diagnoses Not on filedocumented in this encounter Additional Health Concerns Active Problems Noted Date Diagnosed Date Help patients manage their type 2 diabetes 01/24 Patient has chronic kidney disease 01/24/2025 Patient has chronic kidney disease 01/25/2025 Patient has chronic kidney disease 01/30/2025 Patient has chronic kidney disease 02/07/2025 Patient has chronic kidney disease 02/08/2025 Patient has chronic kidney disease 03/08/2025 Assessment Noted Time PHQ-9 Depression Total Score: 3 05/27/19 25 1:41 PM EDT documented as of this encounter Care Teams Broommaking Supervisor Relationship Specialty Start Date End Date Ilana Smith ANP [address] [place] [address] PCP - General Family Medicine 10/24/21 documented as of this encounter
--- OUTSIDE RECORDS SUMMARY | 2025-03-08 11:28 | XMS_ITS | Clinical Summary ---
Author Organization [employer] Address [address] [facility] [address] [place] [address] Care Team Providers Care Analytical Chemist Name Role Phone Ilana Smith Primary Care Provider [phone] Allergies Active Allergy Reactions Criticality Noted Date Comments Doxycycline Other,Vomiting 12/03/2018 vomiting Semaglutide Nausea Medium 05/26/2024 Tirzepatide Nausea Medium 05/26/2024 Medications Deep Sea Nasal Tangent 0.65 % nasal sprayIndications:A cute bacterial rhinosinusitis USE 2 SPRAYS IN EACH NOSTRIL EVERY 2 TO 3 HOURS NEEDED FOR NASAL CONGESTION 44 mL 1 04/22/19 23 Active miconazole (Micotin) 2 % creamIndications:R edi Apply twice daily as needed 118 mL 2 01/07/20 23 Active FreeStyle lancetsIndications :Type 2 diabetes mellitus with hyperlipidemia (HCC) 1 each by Other route 3 times daily. Use bid, dx type 2 diabetes 100 each 11 05/26/19 24 Active albuterol 108 (90 Base) MCG/ACT inhaler INHALE 2 PUFFS BY MOUTH EVERY 4 TO 6 HOURS NEEDED FOR WHEEZING OR SHORTNESS OF BREATH 8.5 g 3 04/11/19 25 Active gabapentin (Neurontin) 400 MG capsuleIndications :Type 2 diabetes mellitus with hyperlipidemia (HCC),Restless legs TAKE 2 CAPSULES BY MOUTH AT BEDTIME NEEDED FOR RESTLESS LEGS AND 1 CAPSULE ONCE DAILY IN THE MORNING 90 capsule 1 05/27/19 25 Active glipiZIDE (Glucotrol) 10 MG tabletIndications: Type 2 diabetes mellitus with hyperlipidemia (HCC) TAKE 1 /2 - 2 TABLET BY MOUTH BEFORE BREAKFAST AND 1/2 -2 TABLETS BEFORE DINNER 360 tablet 2 05/27/19 25 Active insulin lispro (HumaLOG KWIKPEN) 100 UNIT/ML injectionIndicatio ns:Type 2 diabetes mellitus with hyperlipidemia (HCC) Inject 12-18 units under skin in AM and 14-22 units under skin in PM per sliding scale 15 mL 1 09/13/19 25 Active levothyroxine (Synthroid, Levoxyl) 200 MCG tabletIndications: Acquired hypothyroidism TAKE 1 TABLET BY MOUTH EVERY DAY 90 tablet 3 11/26/19 25 Active Continuous Glucose Dock Clerk (FreeStyle Helio 3 [place]) deviceIndications: Type 2 diabetes mellitus with hyperlipidemia (HCC) 1 kit 6 (six) times a day. 2 each 11 12/13/19 25 Active buPROPion XL (Wellbutrin XL) 150 MG 24 hr tabletIndications: Depression, unspecified depression type TAKE 1 TABLET BY MOUTH ONCE DAILYDO NOT CRUSH,CHEW OR SPLIT 90 tablet 12/14/19 25 Active atorvastatin (Lipitor) 80 MG tabletIndications: Type 2 diabetes mellitus with hyperlipidemia (HCC) TAKE 1 TABLET BY MOUTH AT BEDTIME 90 tablet 12/14/19 25 Active insulin glargine (Lantus SoloStar) 100 UNIT/ML penIndications:Typ e 2 diabetes mellitus with hyperlipidemia (HCC) INJECT 42 UNITS SUBCUTANEOUSLY IN THE EVENING 15 mL 5 12/14/19 25 Active Continuous Glucose Sensor (FreeStyle Helio 3 Plus Sensor) miscIndications:Ty pe 2 diabetes mellitus with hyperlipidemia (HCC) 1 each every 15 days. Apply 1 every 15 days as directed for CGM 2 each 12/14/19 25 Active tiotropium (Spiriva Respimat) 2.5 MCG/ACT inhalerIndications :Moderate persistent asthma without complication 2 puffs daily 1 each 12/14/19 25 Active clobetasol (Temovate) 0.05 % ointment Apply daily x 7 days to affected area, then twice a week as needed after that 45 g 12/14/19 25 Active fluticasone-salmet elver (Advair HFA) 230-21 MCG/ACT inhalerIndications :Moderate persistent asthma without complication Inhale 2 puffs in the morning and at bedtime. Rinse mouth with water after use to reduce aftertaste and incidence of candidiasis. Do not swallow. 12 g 11 12/14/19 25 Active Insulin Disposable Pump (Omnipod 5 [id number] Pods Gen 5) miscIndications:Ty pe 2 diabetes mellitus with hyperlipidemia (HCC) 1 Dose every 3 (three) days. Wear daily for insulin administration. Apply a new pod every 72 hours as directed 10 each 01/04/20 Active Continuous Glucose Sensor (Dexcom G7 Sensor) miscIndications:Ty pe 2 diabetes mellitus with hyperlipidemia (HCC) 1 Device every 10 (ten) days. Apply 1 sensor as directed every 10 days for CGM 3 each 01/04/20 Active Insulin Disposable Pump (Omnipod 5 [id number] Intro Gen 5) kitIndications:Typ e 2 diabetes mellitus with hyperlipidemia (HCC) 1 Device Once per day. Use as directed for insulin administration. One kit = 30 day supply. 1 kit 01/04/20 Active Active Problems Problem Noted Date Diagnosed Date Left knee pain 02/01/2025 Acute pain of right knee 01/25/2025 Acquired hypothyroidism 04/07/2018 Hyperlipidemia 04/07/2018 Mild intermittent asthma 04/07/2018 Obstructive sleep apnea syndrome 04/07/2018 Type 2 diabetes mellitus with hyperlipidemia Overview (01/18/2024): her A1c has remained above goal despite insulin therapy and glipizide. She has not been able to tolerate other medications including metformin and GLP1 due to GI side effects. Unable to tolerate SGLT2i d/t recurrent yeast infection. Restless legs 04/07/2018 Wears partial dentures 04/07/2018 Morbid obesity (CMS/HCC) 04/07/2018 H/O: hysterectomy 04/07/2018 Encounters Date Type Department Care Team Description 03/08/2025 2:15 PM EST Clinical Support [facility] [address] [place] [address] Peyton Bernard, ASHWINI COVID; Encounter for prophylactic immunotherapy for respiratory syncytial virus (RSV); Encounter for screening for COVID-19; Influenza 03/08/2025 Travel 01/30/2025 Telephone [facility] [address] [place] [phone] Ilana Smith, ANP Referral 01/25/2025 2:00 PM EST Office Visit [facility] [address] [place] [address] Niyah Hawley MD Acute pain of right knee (Primary Dx); Left knee pain, unspecified chronicity 01/25/2025 Travel 01/24/2025 Telephone [facility] [address] [place] [address] Ilana Smith ANP 01/03/2025 Telephone [facility] [address] [place] [address] Elvira Hamilton, PharmD Prior Authorization 12/30/2024 Telephone [facility] [address] [place] [address] Ilana Smith ANP 12/30/2024 Travel 12/26/2024 Orders Only [facility] [address] [place] [phone] Pete Maldonado MD Type 2 diabetes mellitus with hyperlipidemia (HCC) (Primary Dx) 12/22/2024 Telephone [facility] [address] [place] [phone] Dulce Malik, PharmD 12/18/2024 Refill [facility] [address] [place] [phone] Ilana Smtih ANP Type 2 diabetes mellitus with hyperlipidemia (HCC); Restless legs 12/13/2024 2:00 PM EDT Office Visit [facility] [address] [place] [phone] Ilana Smith ANP Elevated blood pressure reading without diagnosis of hypertension (Primary Dx); Type 2 diabetes mellitus with hyperlipidemia (HCC); Moderate persistent asthma without complication; Encounter for vaccination; Encounter for immunization 12/13/2024 Travel 12/13/2024 Refill [facility] [address] [place] [address] Lexy Felton MD Type 2 diabetes mellitus with hyperlipidemia (HCC) 12/13/2024 Refill [facility] [address] [place] [phone] Ilana Smith ANP Depression, unspecified depression type; Type 2 diabetes mellitus with hyperlipidemia (HCC) 12/12/2024 Refill [facility] [address] [place] [address] Ilana Smith ANP Type 2 diabetes mellitus with hyperlipidemia (HCC) 12/12/2024 Telephone [facility] [address] [place], [place] [phone] Ilana Smith ANP chart prep 12/06/2024 Patient Outreach [facility] [address] [place] [address] Ilana Smith ANP Pre-visit Planning (SDOH screening completed on 05/18/24 ) from Last 3 Months Immunizations Immunization Administration Dates Next Due Influenza High-dose Quadriva lent Preservative Free 12/04/2022,11/21/2021,11/22/2020 Influenza Injectable Quadriv alant Preservative Free IIV4 MDCK 11/23/2019 Influenza injectable quadriv alent IIV4 with preservative 11/17/2018,11/18/2017 Influenza injectable quadriv alent preservative free 01/23/2017 Influenza, High Dose Seasona l, Preservative Free 12/13/2024,02/25/2024 Moderna Covid-19 Vaccine 12+ 01/25/2021,04/06/19 21,03/07/2020 Pfizer Covid-19 Vaccine 12+ 12/13/2024,,02/24/2024 Pneumococcal Conjugate PCV 20 01/06/2023 Pneumococcal Polysaccharide [...] Sign Reading Time Taken Comments Blood Pressure 166/70 01/25/2025 1:56 PM EST Pulse 77 01/25/2025 1:56 PM EST Temperature 36.9 C (98.4 F) 01/25/2025 1:56 PM EST Respiratory Rate 18 01/25/2025 1:56 PM EST Oxygen Saturation 97% 01/25/2025 1:56 PM EST Inhaled Oxygen Concentration - - Weight 104 kg (228 lb 3.2 oz) 11/28/2021 12:09 A M EDT Height 154.9 cm (5' 1 ) 01/25/2025 1:56 PM EST Body Mass Index 41.74 11/28/2021 12:09 AM EDT Plan of Treatment Upcoming Encounters Date Type Department Care Team (Latest Contact Info) Description 03/08/2025 2:15 PM EST Clinical Support [facility] [address] [place] [address] Peyton Bernard, RN COVID; Encounter for prophylactic immunotherapy for respiratory syncytial virus (RSV); Encounter for screening for COVID-19; Influenza 04/18/2025 2:00 PM EST Office Visit [facility] [address] [place] [address] Ilana Smith, ANP [address] [place] [address] Health Maintenance Due Date Last Done Comments CT Colonography 1954 FIT DNA/Cologuard 1954 FIT 1954 FOBT 1954 Sigmoidoscopy 1954 Diabetes: Foot Exam 1964 Eye Exam 1964 Alcohol/Substance Use Screening 1966 Hepatitis C Screening 1972 Mammogram 1994 RSV Patients and Patients Aged 60 years or older (1 - Risk 50-74 years 1-dose series) 2004 Colonoscopy 08/17/2024 08/18/2019 Colorectal Cancer Screening 08/17/2024 Diabetes: Hemoglobin A1C 03/15/2025 025, 02/25/2024, 10/13/2023, Additional history exists SDOH Screening 05/18/2025 05/18/2024 Depression Screening 05/26/2025 05/26/2024, 05/27/19 25 COVID-19 Vaccine ( season) 2025 12/13/2024, 02/25/2024, 02/24/2024, Additional history exists Diabetes: Urine Protein Screening 12/13/2025 12/13/2024 Lipid Panel 12/13/2025 12/13/2024 Tobacco Screening 01/25/2026 01/25/2025 DTaP/Tdap/Td Vaccines (2 - Td or Tdap) 03/09/2026 03/09/2016 Zoster Vaccines Completed 02/02/2019, 12/03/2018 Pneumococcal Vaccine: 50+ Years Completed 01/06/2023, 11/09/2018 Influenza Vaccine Completed 12/13/2024, , 12/04/2022, Additional history exists HIB Vaccines Aged Out [...] patient's age to complete this topic Meningococcal B Vaccine Aged Out No l onger eligible based on patient's age to complete this topic Meningococcal Vaccine Aged Out No nick irma eligible based on patient's age to complete this topic RSV under 20 months Aged Out No longe r eligible based on patient's age to complete this topic Rotavirus Vaccines Aged Out No longer eligible based on patient's age to complete this topic Goals Goal Patient Goal Type Associated Problems [...] has chronic kidney disease No Peyton Bernard, mold blower Procedure Name Priority Date/Time Associated Diagnosis Comments MR KNEE WO CONTRAST LEFT Routine 02/01/2025 Left knee pain, unspecified chronicity POCT GLYCATED HEMOGLOBIN, TOTAL Routine 12/13/2024 2:36 PM EDT Type 2 diabetes mellitus with hyperlipidemia (HCC) ALBUMIN, RANDOM URINE W/CREATININE Routine 12/13/2024 9:20 AM EDT Type 2 diabetes mellitus with hyperlipidemia (HCC) LIPID PANEL, STANDARD Routine 12/13/2024 9:20 AM EDT Type 2 diabetes mellitus with hyperlipidemia (HCC) COMPREHENSIVE METABOLIC PANEL Routine 12/13/2024 9:20 AM EDT Type 2 diabetes mellitus with hyperlipidemia (HCC) TSH W/REFLEX TO FT4 Routine 12/13/2024 9 :20 AM EDT Acquired hypothyroidism HM COLONOSCOPY Routine 08/18/2019 from Last 3 Months or Most Recently Relevant to Health Maintenance Results * MR Knee w/o Contrast Left (02/01/2025) Anatomical Region Laterality Modality Magnetic Resonan ce Niyah Hawley MD IMG MRI PROCEDURES Final Resu lt * (ABNORMAL) POCT Hgb A1c (12/13/2024 2:36 PM EDT) Hemoglobin A1C 9.0(A) 4.0 - 5.7 % QC Media Lot # [id number] Lot# Expiration Date 003 Blood 12/13/2024 2:36 PM EDT us Ilana Smith ANP POINT OF CARE TEST ENTER/EDIT OR DERABLES Final Result * TSH W/Reflex to FT4 (12/13/2024 9:20 AM EDT) Pathologist [facility] TSH reflex Free T4 1.53 0.32 - 4.0 uIU/mL [facility] Blood Venous blood specimen / Unknown 12/13/2024 9:20 AM EDT 12/13/2024 11:15 AM EDT us Ilana Smith ANP LAB BLOOD ORDERABLES Final Resul t [facility] [address] [place] [phone] * Albumin, Random Urine W/Creatinine (12/13/2024 9:20 AM EDT) Creatinine, Urine 79.42 mg/dL [facility] Microalbumin Urine 15.0 mg/L [facility] Microalbum Creatinine Ratio Ur 18.8 <30 ug/mg cr [facility] Comment:Albumin/Creatinine R atio Reference Ranges: Normal: < 30 ug/mg creatinine Microalbuminuria: 30 - 300 ug/mg creatinineClinical Albuminuria: > 300 ug/mg creatinine Urine (Urine, Random) 12/13/2024 9:20 AM EDT 12/13/2024 11:13 AM EDT Ilana Smith [facility] LAB URINE ORDERABLES Final Resul t Performing Organization Address [facility] Co de Phone Number [facility] [address] [place] [address] [phone] * (ABNORMAL) Lipid Panel, Standard (12/13/2024 9:20 AM EDT) Triglycerides 145 <150 mg/dL [facility] Comment:Desirable Triglyceri de: less than 150 mg/dLBorderline High Triglyceride 150-199 mg/dLHigh Triglyceride: 200-499 mg/dLVery High Triglyceride: greater than or equal to 5OO mg/dL Cholesterol 206(H) <200 mg/dL [facility] Comment:Desirable Cholestero l: less than 200 mg/dLBorderline High Cholesterol: 200-239 mg/dLHigh Cholesterol: greater than 239 mg/dL LDL Cholesterol Calculated 131(H) <100 mg/dL [facility] Comment:Desirable LDL: less than 100 mg/dLNear Optimal/Above Optimal LDL: 110- 129 mg/dLBorderline High LDL: 130-159 mg/dLHigh LDL: 160-189 mg/dLVery High LDL: greater than or equal to 190 mg/dL HDL Cholesterol 46 >40 mg/dL [facility] Comment:Desirable HDL: great er than 40 mg/dL Note: This HDL assay may give artificially low results in patients with liver disease. Blood Venous blood specimen / Unknown 12/13/2024 9:20 AM EDT 12/13/2024 11:15 AM EDT Ilana Smith ANP LAB BLOOD ORDERABLES Final Resul t Performing Organization Address [facility] Co de Phone Number [facility] [address] [place] [address] [phone] * (ABNORMAL) Comprehensive Metabolic Panel (12/13/2024 9:20 AM EDT) Sodium 144 135 - 145 mmol/L [facility] Potassium 4.0 3.3 - 5.1 mmol/L [facility] Chloride 109(H) 96 - 108 mmol/L [facility] Carbon Dioxide 28 22 - 29 mmol/L [facility] Anion Gap 11(L) 12 - 20 [facility] Urea Nitrogen (BUN) 17(H) 9 - 16 mg/dL [facility] Creatinine, Serum 0.84 0.5 - 1.4 mg/dL [facility] Estimated Glomerular Filt Rate >60 [facility] Comment:Chronic Kidney Disea se: Estimated GFR < 60 mL/min/[id number] Kidney Disease: Estimated GFR < 15 mL/min/1.73m2 Glucose 71 60 - 115 mg/dL [facility] Calcium 9.3 8.4 - 10.2 mg/dL [facility] Bilirubin, Total 0.3 0.0 - 1.0 mg/dL [facility] Aspartate Amino Transferase 23 5 - 31 U/L [facility] Alanine Aminotransferase 22 0 - 31 U/L [facility] Total Protein 7.5 6.5 - 8.0 g/dL [facility] Albumin Level 4.2 3.5 - 5.0 g/dL [facility] Alkaline Phosphatase 71 39 - 117 U/L [facility] Blood Venous blood specimen / Unknown 12/13/2024 9:20 AM EDT 12/13/2024 11:15 AM EDT Ilana [facility] LAB BLOOD ORDERABLES Final Resul t [facility] [address] [place], [place] [phone] * (ABNORMAL) Hm Colonoscopy (08/18/2019) Colonoscopy Abnormal(A ) Normal Historical Provider MD HEALTH MAINTENANCE Final Result from Last 3 Months or Most Recently Relevant to Health Maintenance Additional Health Concerns Active Problems Noted Date Diagnosed Date Help patients manage their type 2 diabetes 01/24 Patient has chronic kidney disease 01/24/2025 Patient has chronic kidney disease 01/25/2025 Patient has chronic kidney disease 01/30/2025 Patient has chronic kidney disease 02/07/2025 Patient has chronic kidney disease 02/08/2025 Patient has chronic kidney disease 03/08/2025 Insurance [place], [place] [facility] , [address] [place] [address] Care Teams Analytical Chemist Relationship Specialty Start Date End Date Ilana Smith ANP [address] [place] [phone] PCP - General Family Medicine 10/24/21
--- OUTSIDE RECORDS SUMMARY | 2025-03-08 14:15 | XMS_ITS | Encounter Summary ---
Author Organization [employer] Address [address] [facility] [address] [place] [address] Care Team Providers Care Investor Relations Associate Name Role Phone Sarah Ilana GRAHAM Primary Care Provider [phone] Encounter Details Date Type Department Care Team (Latest Contact Info) Description 03/08/2025 2:15 PM EST Clinical Support [facility] [address] [place], [place] [phone] Peyton Bernard, ASHWINI COVID; Encounter for prophylactic immunotherapy for respiratory syncytial virus (RSV); Encounter for screening for COVID-19; Influenza Social History Tobacco Use Types Packs/Day Years [...] as of this encounter Progress Notes * Peyton Bernard RN - 03/08/2025 2:15 PM EST Testing for covid flu rsv documented in this encounter Plan of Treatment Upcoming Encounters Date Type Department Care Team (Late st Contact Info) Description 04/18/2025 2:00 PM EST Office Visit [facility] [address] [place], [place] [phone] Ilana Smith ANP [address] [place] [address] Scheduled Orders Name Type Priority Associated Diagnoses Orde r Schedule SARS-CoV-2 RNA, Influenza A/B, and RSV RNA, Ql NAAT Microbiology Routine COVID Encounter for prophylactic immunotherapy for respiratory syncytial virus (RSV) Ordered: 03/08/2025 POCT Rapid Covid-19 BinaxNOW Point of Care Testing Routine Encounter for screening for COVID-19 Ordered: 03/08/2025 POCT Rapid Influenza A LOWRY ID NOW Point of Care Testing Routine Influenza Ordered: 03/08/2025 POCT Rapid Influenza B LOWRY ID NOW Point of Care Testing Routine Influenza Ordered: 03/08/2025 documented as of this encounter Goals Goal Patient Goal Type Associated Problems Recent Progress Patient-Stated? Author Help patients manage their type 2 diabetes Care Plan Help patients manage their type 2 diabetes Taylor Jimenez, RN Patient has chronic kidney disease Care [...] Patient has chronic kidney disease No Peyton Bernard RN documented as of this encounter Visit Diagnoses Diagnosis COVID Encounter for prophylactic immunotherapy for respiratory syncytial virus (RSV) Encounter for screening for COVID-19 Influenza Influenza with other respiratory manifestations documented in this encounter Additional Health Concerns Active [...] documented as of this encounter Care Teams Investor Relations Associate Relationship Specialty Start Date End Date Ilana Smith ANP [address] [place] [phone] PCP - General Family Medicine 10/24/21 documented as of this encounter
[2025-03-08 17:17] LABS: Resp Syncy Virus RNA Qual PCR NEGATIVE (Negative); SARS COV2 PCR INHOUSE NEGATIVE (Negative)
== END 2025-03-08 10:22 | disposition home or self-care (01) ==
LOC: HO.CHCLNP 10:21
PROVIDERS: PCP Internal Medicine; Visit Provider Internal Medicine
DX: U07.1 COVID-19 (principal); Z29.11 Encounter for prophylactic immunotherapy for respiratory syncytial virus (RSV)
CPT/HCPCS: 87637